=== PATIENT | male | born 1950 | race Caucasian/White ===

== ENCOUNTER 2019-07-23 19:13 | Emergency (ER) | payer MEDICARE, SELFPAY ==
[2019-07-23 19:51] VITALS: BP 142/89; PULSE 90; RESP 16; TEMP 37.7; O2SAT 94; BMI 26.9
[2019-07-23 19:54] VITALS: BP 138/72; PULSE 84; RESP 16; O2SAT 96
--- NOTE | 2019-07-23 21:20 | ED_ITS ---
HPI - Back Pain/Injury General: Chief Complaint: Back Pain/Injury Stated Complaint: BACK PAIN Time Seen by Provider: 07/23/19 21:20 History of Present Illness: HPI Narrative: Patient is a 69-year-old male who comes to the ED with lower back pain and muscle spasms. On July 18 patient had a back surgery where some bone spurs were cleaned up and in the lumbar spine. He stayed 3 days in the hospital after surgery. Patient was discharged last Tuesday he could hardly walk. He says since discharge she started getting muscle spasms that started in his left and right buttock and lower back region and then it just moved down his legs. Describes the pain as cramping muscular pain. Denies any reinjury or fall since being released from the hospital after the surgery. He has been unable to walk and get around. Patient has a follow- up appointment this to see the surgeon. Patient states that when he's laying down he doesn't have any pain, but pain occurs when he does any movements or puts any pressure on his buttock.Denies any bladder or bowel incontinence. Associated symptoms: Deny abdominal pain, chills, dysuria, fatigue, fever(s), hematuria, nausea or vomiting Review of Systems Const: Denies: fever, chills or fatigue Eyes: Denies: change in vision or eye discomfort ENMT: Denies: throat pain, painful swallowing, nasal discharge or nasal congestion Card: Denies: chest pain, palpitations, edema, swelling of feet/ankles, shortness of breath on exertion or shortness of breath when lying down Resp: Denies: shortness of breath, productive cough or non-productive cough GI: Denies: abdominal pain, nausea, vomiting, diarrhea, constipation or blood in stool : Denies: flank pain, difficulty urinating, painful urination or blood in urine Musc: Reports: back pain and muscle cramps; Denies: neck pain or extremity swelling Skin/Breast: Denies: rash or new lesion Neuro: Denies: headache, numbness in extremities or weakness in extremities PFSH ED PFSH: Medical History BPH (benign prostatic hyperplasia) Flank pain Family History Mother , 88 Cancer Alcoholism Father , 71 Cancer stomach Social History Smoking and tobacco status: never smoked Alcohol intake: never Marital status: Current occupational status: retired Physical Exam Narrative: EXAM NARRATIVE: Patient is a 69-year-old male who is laying on the exam bed and appears to be in pain in the room. Const: COMMON NORMALS: oriented x3 HENMT: COMMON NORMALS: normocephalic HEAD & SCALP: normocephalic MOUTH: moist mucous membranes abnormal (mild dryness) Details: parched THROAT: posterior oropharynx normal and uvula midline Neck/C-Spine: COMMON NORMALS: supple GENERAL: Yes normal visual inspection Resp: COMMON NORMALS: normal respiratory effort, no retractions, no use of accessory muscles and clear to auscultation bilaterally AUSCULTATION: clear to auscultation bilaterally Cardio: COMMON NORMALS: regular rate, regular rhythm, S1 normal heart sound, S2 normal heart sound, no gallops, no clicks, no murmurs and peripheral pulses 2+ throughout RATE: regular rate RHYTHM: regular rhythm HEART SOUNDS: S1 normal and S2 normal PERIPHERAL PULSES: pulses 2+ throughout GI: COMMON NORMALS: normal to inspection, nondistended, normoactive bowel sounds, soft to palpation, non-tender and no masses PALPATION: Yes soft : COMMON NORMALS: Yes no CVA tenderness BLADDER/KIDNEY EXAM: Yes no CVA tenderness Back/Pelvis: COMMON NORMALS: no CVA tenderness LUMBAR SPINE/LOWER BACK: Yes paraspinal muscle tenderness and Yes paraspinal muscle spasm Neuro: COMMON NORMALS: oriented x3, moves all extremities, no focal motor deficits and no sensory deficits noted SENSORY EXAM: Yes extremities (intact) MOTOR EXAM: strength 5/5 throughout Skin: COMMON NORMALS: no rashes or lesions noted GENERAL SKIN EXAM: no rashes or lesions noted WOUNDS: Yes surgical site (lumbar spine site healing well. No erythema, warmth or drainage) Course ED course: Patient's pain did eventually improve after 2 doses of morphine and Norflex. Patient was also given IV fluids to help with hydration. Patient was ready to go home and felt like he did receive some pain relief here in the ED. Patient has a scheduled postop appointment for July 26. He is going to call the surgeon tomorrow to see if he can get an earlier postop appointment. Vital Signs: Vital signs: Vital Signs Temperature 100 F H 07/23/19 19:51 Pulse Rate 84 07/23/19 19:54 Respiratory Rate 18 07/24/19 01:21 Blood Pressure 138/72 07/23/19 19:54 Pulse Oximetry 96 07/23/19 19:54 MDM - Back Pain/Injury Lab Data: Attestation: I reviewed the patient's lab results. Labs: Lab Results 07/23/19 07/23/19 07/24/19 Range/Units 21:16 21:35 00:20 WBC 8.3 (4.0-10.0) 10^3/ uL RBC 4.11 (4.1-5.3) 10^6/u L Hgb 12.5 (11.7-16.6) g/dL Hct 37.9 L (42.0-52.0) % MCV 92.2 (80-94) fL MCH 30.4 (28.0-34.0) pg MCHC 33.0 (30.0-36.0) g/dL RDW 12.0 L (12.1-15.1) % Plt Count 229 (130-400) 10^3/c mm MPV 9.4 (7.4-10.4) fL Neut % (Auto) 73.0 % Lymph % (Auto) 17.3 % [place] % (Auto) 7.1 % Eos % (Auto) 1.8 % Baso % (Auto) 0.6 % Neut # (Auto) 6.1 (1.8-7.7) 10^3/u L Lymph # (Auto) 1.4 (0.8-4.8) 10^3/u L [place] # (Auto) 0.6 (0.2-0.9) 10^3/u L Eos # (Auto) 0.2 (0.0-0.8) 10^3/u L Baso # (Auto) 0.1 (0.0-0.1) 10^3/u L Nucleated RBC % (a uto) 0 % Nucleated RBCs # 0.0 /100WBC Sodium (136-145) mmol/L Potassium (3.5-5.1) mmol/L Chloride (98-107) mmol/L Carbon Dioxide (22-29) mmol/L Anion Gap (5-19) BUN (8-23) mg/dL Creatinine (0.7-1.2) mg/dL GFR Calculation (90-130) mL/min Glucose (65-115) mg/dL Calcium (8.5-10.5) mg/dL Total Bilirubin (0.15-1.2) mg/dL AST (0-40) U/L ALT (0-41) U/L Alkaline Phosphata se (40-130) IU/L Total Protein (6.6-8.7) g/dL Albumin (3.5-5.2) g/dL Globulin (1.3-4.6) g/dL Urine Color Yellow (Yellow) Urine Appearance Clear (CLEAR) Urine pH 6 (5-7) Ur Specific Gravit y 1.015 (1.005-1.030) Urine Protein Neg (Negative) Urine Glucose (UA) Norm (Normal) Urine Ketones Negative (Negative) Urine Occult Blood Neg (Negative) Urine Nitrate Negative (Negative) Urine Bilirubin Neg (NEGATIVE) Urine Urobilinogen Norm (Negative) mg/dL Ur Leukocyte Jessica ase Negative (Negative) Influenza Type A A g Negative (Negative) POC Influenza B Ag Negative (Negative) 07/24/19 Range/Units 00:20 WBC (4.0-10.0) 10^3/ uL RBC (4.1-5.3) 10^6/u L Hgb (11.7-16.6) g/dL Hct (42.0-52.0) % MCV (80-94) fL MCH (28.0-34.0) pg MCHC (30.0-36.0) g/dL RDW (12.1-15.1) % Plt Count (130-400) 10^3/c mm MPV (7.4-10.4) fL Neut % (Auto) % Lymph % (Auto) % [place] % (Auto) % Eos % (Auto) % Baso % (Auto) % Neut # (Auto) (1.8-7.7) 10^3/u L Lymph # (Auto) (0.8-4.8) 10^3/u L [place] # (Auto) (0.2-0.9) 10^3/u L Eos # (Auto) (0.0-0.8) 10^3/u L Baso # (Auto) (0.0-0.1) 10^3/u L Nucleated RBC % (a uto) % Nucleated RBCs # /100WBC Sodium 137 (136-145) mmol/L Potassium 4.6 (3.5-5.1) mmol/L Chloride 97 L (98-107) mmol/L Carbon Dioxide 32 H (22-29) mmol/L Anion Gap 12.6 (5-19) BUN 14 (8-23) mg/dL Creatinine 0.9 (0.7-1.2) mg/dL GFR Calculation 84.2 L (90-130) mL/min Glucose 119 H (65-115) mg/dL Calcium 9.7 (8.5-10.5) mg/dL Total Bilirubin 0.5 (0.15-1.2) mg/dL AST 23 (0-40) U/L ALT 20 (0-41) U/L Alkaline Phosphata se 79 (40-130) IU/L Total Protein 7.3 (6.6-8.7) g/dL Albumin 4.0 (3.5-5.2) g/dL Globulin 3.3 (1.3-4.6) g/dL Urine Color (Yellow) Urine Appearance (CLEAR) Urine pH (5-7) Ur Specific Gravit y (1.005-1.030) Urine Protein (Negative) Urine Glucose (UA) (Normal) Urine Ketones (Negative) Urine Occult Blood (Negative) Urine Nitrate (Negative) Urine Bilirubin (NEGATIVE) Urine Urobilinogen (Negative) mg/dL Ur Leukocyte Jessica ase (Negative) Influenza Type A A g (Negative) POC Influenza B Ag (Negative) Discharge Plan Discharge Patient Disposition: Home, Self-Care Clinical Impression: Muscle spasm of back, Muscle spasms of both lower extremities Condition: Stable Prescriptions: No Action hydrocodone-acetaminophen 5-325 mg Tablet 1 tab PO Q4H PRN (Reason: Pain) RF: 0 tamsulosin 0.4 mg Capsule 0.4 mg PO DAILY RF: 0 docusate sodium 100 mg Capsule 100 mg PO BID RF: 0 diazepam 5 mg Tablet 5 mg PO Q6H PRN (Reason: muscle spasm) RF: 0 Discharge Orders: Discharge Order (Routine); Ordered 02/18/20 Ordered By: Berhane Morrison Referrals: Lorenzo Arellano, [Primary Care Provider] - Discharge Diet: Regular Discharge Activity: Increase activity as tolerated and Limit activity as instructed Patient Instructions: Muscle Spasm (ED) Activity Restrictions/Additional Instructions: Call your surgeon tomorrow to discuss postsurgical pain. Continue taking medications as previously prescribed. Make sure to drink plenty of fluids and stay hydrated. Make sure to use your incentive spirometer throughout the day. Shoot for 5-10 Incentive spirometer breathing exercises per hour. Coding Level of Care Code ED [employer] Specialist for Chg Fwd Exam Comprehensive
[2019-07-23 22:01] LABS: Influenza A by IFA Negative (Negative); Influenza B by IFA Negative (Negative)
[2019-07-23] MEDS: orphenadrine 30 mg/mL Inj 2 mL 60 MG IM (23:04)
[2019-07-23] MEDS: morphine 4 mg/mL SDV 1 mL IM (23:04)
--- NOTE | 2019-07-24 00:42 | PC.NURSE ---
assisted patient to ambulate to bathroom per his request. Patient had spasms in his back while walking.
[2019-07-24 00:45] LABS: Basophils # 0.1 10^3/uL (0.0-0.1); Basophils % 0.6 %; Eosinophils # 0.2 10^3/uL (0.0-0.8); Eosinophils % 1.8 %; Hematocrit 37.9 % (42.0-52.0); Hemoglobin 12.5 g/dL (11.7-16.6); Lymphocytes # 1.4 10^3/uL (0.8-4.8); Lymphocytes % 17.3 %; Mean Corpuscular Hemoglobin 30.4 pg (28.0-34.0); Mean Corpuscular Volume 92.2 fL (80-94); Mean Platelet Volume 9.4 fL (7.4-10.4); Monocytes # 0.6 10^3/uL (0.2-0.9); Monocytes % 7.1 %; Neutrophils # 6.1 10^3/uL (1.8-7.7); Nucleated Red Blood Cells % 0 %; Platelet Count 229 10^3/cmm (130-400); Red Blood Count 4.11 10^6/uL (4.1-5.3); White Blood Count 8.3 10^3/uL (4.0-10.0)
[2019-07-24 00:54] LABS: Alanine Aminotransferase 20 U/L (0-41); Alkaline Phosphatase 79 IU/L (40-130); Anion Gap 12.6 (5-19); Aspartate Amino Transferase 23 U/L (0-40); Blood Urea Nitrogen 14 mg/dL (8-23); Calcium 9.7 mg/dL (8.5-10.5); Carbon Dioxide 32 mmol/L (22-29); Chloride 97 mmol/L (98-107); Globulin 3.3 g/dL (1.3-4.6); Glomerular Filtration Rate 84.2 mL/min (90-130); Glucose 119 mg/dL (65-115); Potassium 4.6 mmol/L (3.5-5.1); Sodium 137 mmol/L (136-145); Total Bilirubin 0.5 mg/dL (0.15-1.2); Total Protein 7.3 g/dL (6.6-8.7)
[2019-07-24 01:06] LABS: Add Urine Microscopic? NO
[2019-07-24] MEDS: sodium chloride 0.9% 1,000 ML 999 ML IV (01:19)
[2019-07-24 01:21] VITALS: RESP 18
[2019-07-24] MEDS: morphine 4 mg/mL SDV 1 mL IVP (01:21)
[2019-07-24 01:25] LABS: Bilirubin Urine Neg (NEGATIVE); Blood Urine Neg (Negative); Glucose Urine UA Norm (Normal); Ketones Urine Negative (Negative); Leukocyte Esterase Urine Negative (Negative); Nitrate Urine Negative (Negative); Protein Urine Neg (Negative); Specific Gravity, Urine 1.015 (1.005-1.030); Urine Appearance Clear (CLEAR); Urine Color Yellow (Yellow); Urobilinogen Urine Norm (Negative); pH Urine 6 (5-7)
== END 2019-07-24 03:54 | disposition home or self-care (01) ==
PROVIDERS: Emergency Medicine; Emergency Provider Physician Assistant; Family Provider Internal Medicine; PCP Internal Medicine
DX: M62.830 Muscle spasm of back (principal); M62.838 Other muscle spasm; Z98.890 Other specified postprocedural states
CPT/HCPCS: 36415; 80053; 81003; 85025; 87804; 96361; 96372; 96374; 96375; 99282; 99283; J2270; J2360; J7030

== ENCOUNTER → 2022-09-15 12:56 | Outpatient (BNVA) | payer MEDICARE, SELFPAY | PROVIDERS: Family Provider Internal Medicine; PCP Internal Medicine; Visit Provider Podiatrist Foot & Ankle Surgery | DX: M67.471 Ganglion, right ankle and foot (principal) | CPT/HCPCS: 73630; 99203 ==

== ENCOUNTER → 2023-04-25 10:00 | Outpatient (BNVA) | payer MEDICARE, SELFPAY | PROVIDERS: Family Provider Internal Medicine; PCP Internal Medicine; Visit Provider Nurse Practitioner Family | DX: L82.1 Other seborrheic keratosis (principal); L81.4 Other melanin hyperpigmentation; L57.8 Other skin changes due to chronic exposure to nonionizing radiation; D22.5 Melanocytic nevi of trunk | CPT/HCPCS: 99213 ==

== ENCOUNTER → 2024-04-25 08:16 | Outpatient (BNVA) | payer MEDICARE, SELFPAY | PROVIDERS: Family Provider Internal Medicine; PCP Internal Medicine; Visit Provider Nurse Practitioner Family | DX: L82.1 Other seborrheic keratosis (principal); L81.4 Other melanin hyperpigmentation; L57.8 Other skin changes due to chronic exposure to nonionizing radiation; D22.5 Melanocytic nevi of trunk; L57.0 Actinic keratosis | CPT/HCPCS: 17000; 99213 ==

== ENCOUNTER 2024-07-18 07:46 | Outpatient (CLI) | payer MEDICARE, SELFPAY ==
--- NOTE | 2024-07-18 07:55 | MR_ITS ---
WS: [id number] MRI BRAIN WITH HIGH-RESOLUTION IMAGING THROUGH THE INTERNAL AUDITORY CANALS WITHOUT AND WITH CONTRAST HISTORY: HEARING LOSS RIGHT EAR COMPARISON: None available. TECHNIQUE: Multiplanar, multisequence imaging is performed through the brain. Additional 3 mm imaging performed in multiple planes through the internal auditory canal. Postcontrast imaging with 17 ml's of MultiHance. No acute intracranial hemorrhage, midline shift, edema or mass effect. Diffusion imaging is normal. Mild cerebral and cerebellar volume loss. Mild bilateral hippocampal atrophy, RIGHT slightly greater than LEFT. Prior infarcts. There is minimal T2 and FLAIR signal hyperintensities from small vessel disease. Ventricles and extra-axial spaces are normal. No inferior displacement of cerebellar tonsils. Clivus and pituitary gland are normal. Internal and external auditory canals: Unremarkable. Cranial nerves VII and VIII complexes: Unremarkable. No enhancement or mass. Trigeminal nerve nerve root reentry zone is normal. There is no displacement of the trigeminal nerves. No signal abnormality. No mass or mass effect at the cerebellopontine angles. No nerve enhancement. Normal Meckel's cave. Cerebellopontine angles: Normal. Paranasal sinuses: Minimal mucoperiosteal thickening in the RIGHT maxillary sinus. No air-fluid levels. Mastoid air cells: Extensive bilateral mastoid air cell effusions extending into the petrous ridges. Calvarium and scalp: Normal. Visualized [place] of [place] and dural venous sinuses demonstrate no abnormality. MR/MR iac's wo/w con* [id number] IMPRESSION: 1. No mass or abnormal enhancement along the internal auditory canals or the t rigeminal nerve re-entry zone. 2. Extensive bilateral mastoid air cell effusions. 3. Very mild cerebral, cerebellar and hippocampal atrophy. 4. Minimal small vessel ischemic disease. 5. No enhancing masses or vascular malformations.
[2024-07-18] MEDS: gadobenate dimeglumine 20 mL vial IV (08:42)
== END 2024-07-18 07:47 | disposition home or self-care (01) ==
LOC: RAD 07:50
PROVIDERS: Family Provider Internal Medicine; PCP Electrodiagnostic Medicine; Visit Provider Specialist
DX: H91.91 Unspecified hearing loss, right ear (principal); H74.8X3 Other specified disorders of middle ear and mastoid, bilateral; G31.89 Other specified degenerative diseases of nervous system; R93.0 Abnormal findings on diagnostic imaging of skull and head, not elsewhere classified
CPT/HCPCS: 70553

== ENCOUNTER 2025-01-24 13:12 | Outpatient (CLI) | payer MEDICARE, SELFPAY ==
--- NOTE | 2025-01-24 13:25 | CT_ITS ---
WS: [id number] CT SINUSES TECHNIQUE: Noncontrast CT of the paranasal sinuses with coronal and sagittal reformatted images. CLINICAL INFORMATION: CHRONIC SINUSITIS COMPARISON: None. DLP: 335.[address] scans at [facility] use at least one of these dose optimization techniques: automated exposure control; mA and/or kV adjustment per patient size (includes targeted exams where dose is matched to clinical indication); or iterative reconstruction. FINDINGS: Paranasal sinusitis. Air-fluid levels in the maxillary sinus bilaterally LEFT greater than RIGHT. Sphenoid sinusitis with secretions. Mild mucosal thickening ethmoid air cells. Mucosal thickening LEFT frontal ethmoidal recess. Frontal sinuses are well aerated. Sphenoid sinus ostia are patent. LEFT mastoid air cells are well aerated. Mucosal thickening with partial opacification RIGHT mastoid tip. Opacification LEFT ostiomeatal unit. CT/CT sinus wo con* [id number] IMPRESSION: Paranasal sinusitis described above.
== END 2025-01-24 13:13 | disposition home or self-care (01) ==
LOC: RAD 13:14
PROVIDERS: PCP Electrodiagnostic Medicine; Visit Provider Electrodiagnostic Medicine
DX: J32.3 Chronic sphenoidal sinusitis (principal)
CPT/HCPCS: 70486

== ENCOUNTER → 2025-04-25 08:33 | Outpatient (BNVA) | payer MEDICARE, SELFPAY | PROVIDERS: PCP Electrodiagnostic Medicine; Visit Provider Nurse Practitioner Family | DX: L82.1 Other seborrheic keratosis (principal); L81.4 Other melanin hyperpigmentation; L57.8 Other skin changes due to chronic exposure to nonionizing radiation; D18.01 Hemangioma of skin and subcutaneous tissue; L57.0 Actinic keratosis | CPT/HCPCS: 17000; 99213 ==